=== PATIENT | male | born 1990 | race African-American/Black ===

== ENCOUNTER 2019-11-05 13:00 | Emergency (ER) | payer MEDICAID ==
[~2019-11-05] VITALS: Ht 177.8 cm; Wt 75.0 kg
[2019-11-05 13:11] VITALS: BP 120/77
[2019-11-05] MEDS ORDERED: CEFTRIAXONE SODIUM 250 MG/VIAL IM ONE (14:15)
[2019-11-05] MEDS ORDERED: AZITHROMYCIN 500 MG TABLET PO ONE (14:15)
[2019-11-05 15:45] LABS: CLARITY URINE CLEAR (CLEAR); COLOR URINE YELLOW (YELLOW); KETONES URINE TRACE (NEGATIVE); LEUKOCYTE ESTERASE URINE 2+ (NEGATIVE); NITRITE URINE NEGATIVE (NEGATIVE); OCCULT BLOOD URINE NEGATIVE (NEGATIVE); PROTEIN URINE NEGATIVE (NEGATIVE); SPECIFIC GRAVITY URINE 1.025 (1.005-1.030)
[2019-11-10 04:07] LABS: NEISSERIA GONORRHOEAE NAA Positive (Negative)
== END 2019-11-05 15:17 | disposition home or self-care (01) ==
LOC: ER 13:00
DX: N34.2 Other urethritis (principal)
CPT/HCPCS: 81003; 87491; 87591; 96372; 99283; J0696